=== PATIENT | female | born 1990 | race Native Hawaiian/Other Pacific Islander ===

== ENCOUNTER 2018-07-31 11:30 | Outpatient (CLI) | payer OTHER | END 2018-07-31 11:31 | disposition home or self-care (01) | LOC: C.LAB 11:30 | DX: F84.9 Pervasive developmental disorder, unspecified (principal); F90.9 Attention-deficit hyperactivity disorder, unspecified type; Z68.23 Body mass index [BMI] 23.0-23.9, adult; Z00.00 Encounter for general adult medical examination without abnormal findings ==